=== PATIENT | female | born 1960 | race Caucasian/White ===

== ENCOUNTER 2017-07-18 21:59 | Emergency (ER) | payer OTHER ==
--- NOTE | 2017-07-18 22:22 | ED Physician Documentation ---
Low Back Pain - HISTORIAN Historian: patient - HPI Chief Complaint: Low Back Pain/ Injury History: history of chronic pain: Duration: continues in ED Recent Injury: No Severity: severe Further Comments: yes (57 year old woman presents with complaint of low back pain. Patient was seen by Dr Price today - KUB done at [facility], patient instructed to take magnesium citrate, and 5mg of valium. States she could not drink the magnesium citrate and took 2.5mg. Last BM - 2 days ago. Uses vicodin for chronic back pain related to scoliosis. Patient states she has been able to keep down liquids and food today.) - ROS CONST: no problems CVS/RESP: none EYES/ENT: none MS/SKIN/LYMPH: back pain GI/: other (constipation) - PAST HX Past History: back pain, other (scoliosis) Other History: hypertension, other (depression) Allergies/Adverse Reactions: Allergies Allergy/AdvReac Type Severity Reaction Status Date / Time Sulfa (Sulfonamide Allergy Hives Verified 07/18/17 22:23 Antibiotics) Home Medications: Ambulatory Orders Medication Instructions Recorded Citalopram Hydrobromide 20 mg PO DAILY 07/18/17 [Citalopram HBr] Cyclobenzaprine HCl [Flexeril] 5 mg PO Q6 PRN 07/18/17 Diazepam [Valium] 5 mg PO TID PRN 07/18/17 Gabapentin [Gabapentin] 400 mg PO BID 07/18/17 Hydrocodone/Acetaminophen 1 tab PO DAILY PRN 07/18/17 [Hydrocodone-Acetamin 5-325 mg] amLODIPine BESYLATE [Norvasc] 5 mg PO DAILY 07/18/17 - SOCIAL HX Smoking History: cigarettes - FAMILY HX Family History: denies: none - VITAL SIGNS Vital Signs: Vital Signs Temp Pulse Resp BP Pulse Ox 98.6 F 66 18 152/82 96 07/18/17 22:23 07/18/17 22:23 07/18/17 22:23 07/18/17 22:23 07/18/17 22:23 - REVIEWED ASSESSMENTS Nursing Assessment Reviewed: Yes Vitals Reviewed: Yes Progress - Progress Progress: KUB reviewed from today; large amount of stool noted in abd. Patient vomited x 1 today. Will attempt to have patient drink magnesium citrate in Er; premedicate with zofran. Will give toradol and norflex for Back pain. Dulcolax suppos in Er. If unable to keep down magnesium citrate -will progress with fluids and lab. ED Results Lab/Radiology - Radiology Radiology Impressions: History: LOW BACK PAIN; CONSTIPATION (Hx) Findings: 2 views obtained of the abdomen. Significant stool throughout the large bowel. No suspicious calcifications projecting over the renal fossa or the lower pelvic region. Significant lumbar curvature to the left. Impression: Significant large bowel stool - constipation. Electronically signed on July 18, 2017 7:52:54 PM CDT by: Antonio Ardon - Orders Orders: ED Orders Category Date Time Status Oil Enema [Administer Enema] 1T Care 07/18/17 22:49 Active Bisacodyl [Dulcolax] Med 07/18/17 22:26 Discontinued 10 mg RC NOW ONE Ketorolac Tromethamine [Toradol] Med 07/18/17 22:23 Discontinued 60 mg IM NOW ONE Magnesium Citrate [Citrate of Magnesia] Med 07/18/17 22:22 Discontinued 296 ml PO NOW ONE Ondansetron HCl Rapdis [Zofran Odt] Med 07/18/17 22:22 Discontinued 4 mg PO NOW ONE Orphenadrine Citrate [Norflex] Med 07/18/17 22:23 Discontinued 60 mg IM NOW ONE Low Back Pain/Injury - Physical Exam General Appearance: moderate distress EENT: eye inspection normal, DEON Resp/CVS: chest non-tender, breath sounds nml, heart sounds nml, no resp. distress, lungs clear, reg. rate & rhythm Abdomen: no organomegaly, no pulsatile mass, other (generalized discomfort; hyperactive BS) Straight Leg Raising: Negative Right, Positive Left Neuro/Psych: oriented x3, motor nml, sensation nml, bilat. doriflexion nml, reflexes nml, mood/affect nml Skin: normal color, warm/dry, NR, INT, PAL, DR Extremities: non-tender, normal range of motion, no evidence of injury, no edema , J, [employer] [employer] [facility]YER Discharge Clincal Impression: Constipation Qualifiers: Constipation type: drug induced constipation Qualified Code(s): K59.03 - Drug induced constipation Referrals: Angela Ontiveros MD [Primary Care Provider] - 2 Days Additional Instructions: If no BM by noon - repeat 1/2 bottle of magnesium citrate. Increase fluids - at least 64 oz water, gatorade, poweraid (non-caffeine beverage) Start Colace 100mg daily (docusate sodium) Return to the emergency department or call your doctor, if you are having severe abdominal pain, fever >101.0, or if there is blood in the vomit or diarrhea, or you cannot keep down liquids or solid food. Condition: Stable Disposition: 01 HOME, SELF-CARE Decision to Admit: NO Decision Time: 23:01
[2017-07-18 22:31] VITALS: BP 152/82
[2017-07-18] MEDS: KETOROLAC TROMETHAMINE 60 MG/2 ML VIAL IM ONE (22:43)
[2017-07-18] MEDS: ONDANSETRON HCL 4 MG TAB.RAPDIS PO ONE (22:43)
[2017-07-18] MEDS: ORPHENADRINE CITRATE 60 MG/2ML IM ONE (22:43)
[2017-07-18] MEDS: BISACODYL 10 MG SUPP.RECT RC ONE (22:45)
[2017-07-18] MEDS: MAGNESIUM CITRATE 296 ML BOTTLE PO ONE (22:54)
== END 2017-07-18 23:39 | disposition home or self-care (01) ==
LOC: ED 21:59
DX: K59.03 Drug induced constipation (principal)
CPT/HCPCS: A9270; J1885; J2360; 96372

== ENCOUNTER → 2017-07-18 | Outpatient (CLI) | payer OTHER ==
[2017-07-18 22:31] VITALS: BP 152/82
--- NOTE | 2017-07-19 06:51 | Diagnostic Imaging Report ---
CECILIA CONCEPCION [facility] [address] [facility] [address] [id number] Report Submission Date: July 18, 2017 7:52:54 PM CDT Patient Study Name: GABRIELLA FAIRBANKS Date: July 18, 2017 4:13:37 PM CDT Modality Type: DX Gender: F Description: ABDOMEN : 58 Institution: [facility] Physician: CECILIA CONCEPCION Examination: Abdomen History: LOW BACK PAIN; CONSTIPATION (Hx) Findings: 2 views obtained of the abdomen. Significant stool throughout the large bowel. No suspicious calcifications projecting over the renal fossa or the lower pelvic region. Significant lumbar curvature to the left. Impression: Significant large bowel stool - constipation. Electronically signed on July 18, 2017 7:52:54 PM CDT by: Antonio LOERA
== END ==
LOC: RAD 15:35
PROVIDERS: ATTEND Family Medicine
DX: M54.9 Dorsalgia, unspecified (principal)
CPT/HCPCS: 74018